=== PATIENT | male | born 1980 | race Caucasian/White ===

== ENCOUNTER → 2022-12-04 | Outpatient (CLI) | payer OTHER ==
--- NOTE | 2022-12-04 14:21 | Diagnostic Imaging Report ---
INDICATION: Pain in right heel. COMPARISON: None. FINDINGS: Two views of the right calcaneus were obtained and show no fractures, dislocations, or other acute bony abnormalities. Joint spaces are well maintained throughout. The soft tissues appear unremarkable. No unexpected radiopaque foreign bodies are identified. IMPRESSION: Unremarkable radiographic exam of the right calcaneus. Dictated by: Dictated on workstation # [id number]
== END ==
LOC: ORTHO 07:57
PROVIDERS: ATTEND Orthopaedic Surgery
DX: M79.671 Pain in right foot (principal)
CPT/HCPCS: 73650; G0463; 99203